=== PATIENT | female | born 1960 | race Caucasian/White ===

== ENCOUNTER 2023-10-10 08:33 | Day surgery (SDC) | payer BC, MEDICAID ==
[~2023-10-10] VITALS: Ht 160 cm; Wt 88.5 kg
[2023-10-10] MEDS ORDERED: LIDOCAINE 2%, 20 ML MDV ONE (10:00)
[2023-10-10] MEDS ORDERED: iopamidoL 50 ML VIAL IV ONE (10:00)
[2023-10-10] MEDS ORDERED: methylPREDNISolone ACETATE 40 MG/ML ONE (10:00)
[2023-10-10] MEDS ORDERED: NORMAL SALINE 10 ML VIAL ONE (10:00)
[2023-10-10] MEDS ORDERED: DIPHENHYDRAMINE INJ 50 MG/ML VIAL ONE (11:13)
[2023-10-10] MEDS: fentaNYL CITRATE/PF 100 MCG/2 ML AMP ONE (11:53)
[2023-10-10] MEDS: MIDAZOLAM HCL 5 MG/5 ML VIAL ONE (11:54)
[2023-10-10 14:07] VITALS: O2SAT 100
[2023-10-10 18:11] VITALS: BP_SYST 122; PULSE 76; RESP 16
== END 2023-10-10 12:52 | disposition home or self-care (01) ==
LOC: SDS 08:33 → SMU 08:35 → SDS 12:52
PROVIDERS: ATTEND Internal Medicine
DX: M51.16 Intervertebral disc disorders with radiculopathy, lumbar region (principal); M79.10 Myalgia, unspecified site; J45.909 Unspecified asthma, uncomplicated; I25.10 Atherosclerotic heart disease of native coronary artery without angina pectoris; E03.9 Hypothyroidism, unspecified; E78.5 Hyperlipidemia, unspecified; Z79.890 Hormone replacement therapy; Z79.899 Other long term (current) drug therapy; Z96.643 Presence of artificial hip joint, bilateral
CPT/HCPCS: 62323; J1030; J2250; J3010; Q9967; 76000; J1200; J2001